=== PATIENT | female | born 1990 | race Caucasian/White ===

== ENCOUNTER → 2018-11-24 | Outpatient (REF) | payer MEDICAID, OTHER ==
[~2018-11-24] MED LIST: PAXI10TA12 PO; RISP1TAB42 PO; TRAZ-252 PO
[2018-11-29 15:06] LABS: HPV HYBRID CAPTURE II Positive (Negative)
== END ==
LOC: M LAB LCGH 13:08
PROVIDERS: ATTEND Obstetrics & Gynecology
DX: Z12.4 Encounter for screening for malignant neoplasm of cervix (principal); R10.2 Pelvic and perineal pain

== ENCOUNTER → 2018-12-28 | Outpatient (REF) | LOC: M LAB LCGH 10:02 | PROVIDERS: ATTEND Obstetrics & Gynecology | DX: R87.613 High grade squamous intraepithelial lesion on cytologic smear of cervix (HGSIL) (principal); N89.3 Dysplasia of vagina, unspecified; R87.612 Low grade squamous intraepithelial lesion on cytologic smear of cervix (LGSIL) ==

== ENCOUNTER → 2019-01-25 | Outpatient (REF) | LOC: M LAB LCGH 15:23 | PROVIDERS: ATTEND Obstetrics & Gynecology | DX: N87.1 Moderate cervical dysplasia (principal) ==

== ENCOUNTER 2025-03-02 21:56 | Emergency (ER) | payer OTHER ==
[~2025-03-02 21:56] MED LIST changes: -PAXI10TA12 PO; +PAXI10TA13 PO
[2025-03-02 22:09] VITALS: TEMP 98.6
[2025-03-02 22:25] LABS: BASO # 0.1 10^3/uL (0.0-0.2); BASO % 0.8 % (0.0-1.0); EOS # 0.2 10^3/uL (0.0-0.5); EOS % 1.6 % (0.0-3.0); LYMPH # 4.6 10^3/uL (1.5-5.0); LYMPH % 42.1 % (24.0-44.0); MONO # 0.9 10^3/uL (0.0-0.8); MONO % 8.5 % (2.0-8.0); NEUTROPHILS # 5.1 10^3/uL (1.5-8.5); NEUTROPHILS % 46.5 % (36.0-66.0); PLATELET COUNT, AUTOMATED 322 10^3/uL (150-450)
[2025-03-02] MEDS: ACETAMINOPHEN *IV* 1,000 MG in IV 1 EA IV ONE (22:27)
[2025-03-02] MEDS ORDERED: ISOVUE-370 76% 100 ML VIAL As Ordered ONE (22:37)
[2025-03-02 22:56] LABS: CALCIUM LEVEL 8.4 MG/DL (8.5-10.1); CARBON DIOXIDE LEVEL 22 MMOL/L (20-31); CHLORIDE LEVEL 110 MMOL/L (98-107); CREATININE FOR GFR 0.59 MG/DL (0.55-1.30); GLOMERULAR FILTRATION RATE > 90.0 (>60); POTASSIUM SERUM 3.8 MMOL/L (3.5-5.1); SODIUM LEVEL 144 MMOL/L (136-145)
[2025-03-02 23:23] LABS: ETHYL ALCOHOL (ETHANOL) 0.275 % (0.000-0.010)
[2025-03-02 23:24] LABS: ALT/SGPT 24 U/L (7.0-40); AST/SGOT 32 U/L (<34)
[2025-03-02] MEDS: KETOROLAC 30 MG/ML 1 ML VIAL IV ONE (23:59)
[2025-03-03 00:45] VITALS: BP 106/67
[2025-03-03 01:16] LABS: APPEARANCE, URINE CLEAR (CLEAR); BACTERIA, URINE AUTO NEGATIVE (NEGATIVE); BILIRUBIN, URINE AUTO NEGATIVE (NEGATIVE); BLOOD, URINE BLOOD 1+ (NEGATIVE); GLUCOSE, URINE (UA) AUTO NEGATIVE (NEGATIVE); KETONE, URINE AUTO NEGATIVE (NEGATIVE); LEUKOCYTE ESTERASE, URINE AUTO NEGATIVE (NEGATIVE); NITRITE, URINE AUTO NEGATIVE (NEGATIVE); PROTEIN, URINE AUTO NEGATIVE (NEGATIVE); RBC, URINE AUTO 0 /HPF (0-3); SPECIFIC GRAVITY URINE AUTO 1.038 (1.002-1.035); SQUAMOUS EPITHELIAL CELL UR AU 1 /HPF (0-6); UROBILINOGEN, URINE AUTO 0.2 mg/dL (0.0-2.0); WBC, URINE AUTO 2 /HPF (0-3)
[2025-03-03 01:30] VITALS: O2SAT 99
[2025-03-03 01:38] LABS: AMPHETAMINES LEVEL URINE NEGATIVE (NEGATIVE); BARBITURATES URINE NEGATIVE (NEGATIVE); BENZODIAZEPINES URINE NEGATIVE (NEGATIVE); COCAINE METABOLITE URINE NEGATIVE (NEGATIVE); METHADONE URINE NEGATIVE (NEGATIVE); OPIATES URINE NEGATIVE (NEGATIVE); PHENCYCLIDINE URINE NEGATIVE (NEGATIVE)
[2025-03-03 01:49] LABS: CANNABINOIDS URINE POSITIVE (NEGATIVE)
== END 2025-03-03 01:35 | disposition left against medical advice (07) ==
LOC: M ED 21:56
DX: M54.50 Low back pain, unspecified (principal); S80.02XA Contusion of left knee, initial encounter; V47.0XXA Car driver injured in collision with fixed or stationary object in nontraffic accident, initial encounter; Y92.410 Unspecified street and highway as the place of occurrence of the external cause; Z53.8 Procedure and treatment not carried out for other reasons; F17.200 Nicotine dependence, unspecified, uncomplicated; Y93.89 Activity, other specified; Y99.9 Unspecified external cause status
CPT/HCPCS: 70450; 71260; 72125; 72128; 72131; 74177; 80047; 80048; 80076; 80307; 81001; 82077; 83690; 85025; 96365; 96375; 99284; J0134; J1885; Q9967